=== PATIENT | male | born 1985 | race Hispanic/Latino ===

== ENCOUNTER 2022-08-15 17:30 | Emergency (ER) | payer SELFPAY ==
[~2022-08-15] VITALS: Ht 160 cm; Wt 91.0 kg
[2022-08-15 19:32] VITALS: BP 131/86
[2022-08-15] MEDS ORDERED: AMOXICILLIN500 M2 PO (19:43)
[2022-08-15 19:45] VITALS: BP 134/78
[2022-08-15 19:53] VITALS: BP 134/78
== END 2022-08-15 19:50 | disposition home or self-care (01) | DRG 159 ==
LOC: ED 17:30
DX: K04.7 Periapical abscess without sinus (principal)

== ENCOUNTER 2022-08-31 16:40 | Emergency (ER) | payer SELFPAY ==
[~2022-08-31] VITALS: Ht 160 cm; Wt 94.0 kg
[~2022-08-31 16:40] MED LIST: AMOXICILLIN500 M2 PO
[2022-08-31 16:59] VITALS: BP 137/87
[2022-08-31 17:00] VITALS: BP 127/80
[2022-08-31] MEDS ORDERED: CLINDAMYCIN HY150 MG PO ×2 (17:02→17:45)
[2022-08-31] MEDS ORDERED: NAPROXEN500 MG PO ×2 (17:02→17:45)
[2022-08-31 17:15] VITALS: BP 135/93
== END 2022-08-31 17:13 | disposition home or self-care (01) | DRG 159 ==
LOC: ED 16:40
DX: K04.7 Periapical abscess without sinus (principal)